=== PATIENT | male | born 2000 | race Hispanic/Latino ===

== ENCOUNTER 2020-01-07 02:13 | Emergency (ER) | payer MEDICAID, OTHER, SELFPAY ==
[2020-01-07] MEDS ORDERED: ACETAMINOPHEN EXTRA STRENGTH 500 MG TABLET ONE (02:26)
[2020-01-07] MEDS ORDERED: SODIUM CHLORIDE 0.9% 1000ML 1,000 ML IV ONE (02:27)
[2020-01-07 04:01] LABS: RAPID GROUP A STREP NEGATIVE (NEGATIVE)
[2020-01-07] MEDS ORDERED: IBUPROFEN 800 MG TAB ONE (04:47)
[2020-01-07] MEDS ORDERED: DEXTROSE 50%-WATER 50 ML DISP.SYRIN IV ONE (05:35)
== END 2020-01-07 04:51 | disposition home or self-care (01) ==
LOC: EDH 02:13
DX: B34.9 Viral infection, unspecified (principal); R50.9 Fever, unspecified; Z20.828 Contact with and (suspected) exposure to other viral communicable diseases
CPT/HCPCS: 36415; 87804 ×2; 87880; 99283; J7030; J7070; U0003